=== PATIENT | male | born 1955 | race Caucasian/White ===

== ENCOUNTER 2016-11-29 05:36 | Inpatient (IN) ==
[2016-11-29 06:02] LABS: Basophils % 0.5 % (0.0-0.8); Eosinophils # 0.2 10*3/uL (0.0-0.87); Eosinophils % 2.3 % (0.00-10.9); Hematocrit 41.6 VOL% (42.0-52.0); Hemoglobin 14.7 GM/DL (14.0-18.0); Immature Granulocytes % 0.3 %; Immature Granulocytes Absolute 0.02 #; Lymphocytes % 30.7 % (21.2-54.2); Mean Corpuscular HGB Conc 35.3 GM/DL (32-36); Mean Corpuscular Hemoglobin 33 PG (27-34); Mean Corpuscular Volume 92.4 FL (87-102); Mean Platelet Volume 10.2 FL (9.6-12.0); Monocytes # 0.7 10*3/uL (0.11-0.8); Monocytes % 11.3 % (1.7-12.7); Neutrophils # 3.6 10*3/uL (1.4-7.4); Neutrophils % 54.9 % (38.7-73.9); Platelet Count 156 T/CUMM (130-400); Red Cell Distribution Width 13.2 % (9.3-17.3); White Blood Count 6.6 T/CUMM (4-12)
[2016-11-29] MEDS ORDERED: ASPIRIN 325 MG TABLET PO STA (06:05)
[2016-11-29] MEDS ORDERED: NITROGLYCERIN 2% OINT 1 INCH/GM PACK TOP STA (06:05)
[2016-11-29] MEDS ORDERED: ONDANSETRON 4 MG/2 ML VIAL IV STA (06:05)
[2016-11-29] MEDS ORDERED: ALUM/MAG/SIMETH/LIDO VISC 1:1 30 ML BOTTLE PO STA (06:05)
[2016-11-29] MEDS ORDERED: MORPHINE 2 MG/1 ML SYRINGE IV STA (06:05)
[2016-11-29] MEDS ORDERED: NITROGLYCERIN SL 0.4 MG TABLET SL PRN (06:05)
[2016-11-29] MEDS ORDERED: ENOXAPARIN 100 MG/ML SYRINGE SUBCUT STA (06:05)
[2016-11-29] MEDS ORDERED: ENOXAPARIN 100 MG/ML SYRINGE SUBCUT ONE (06:07)
[2016-11-29] MEDS ORDERED: ONDANSETRON 4 MG/2 ML VIAL ONE (06:08)
[2016-11-29] MEDS ORDERED: MORPHINE 2 MG/1 ML SYRINGE ONE (06:08)
[2016-11-29] MEDS ORDERED: NITROGLYCERIN 2% OINT 1 INCH/GM PACK TOP ONE (06:08)
[2016-11-29 06:12] LABS: PT Patient Result 10.8 SECS; Partial Thromboplastin Time 28.6 SECS (0-40)
--- NOTE | 2016-11-29 06:16 | Emergency Department Note ---
Noe Foster Brooke, am scribing for, and in the presence of, Az Hutson MD 06:08 . Caryl Foster James D, MD, personally performed the services described in this documentation, ascribed by Kayla Liu in my presence, and it is both accurate and complete 614 . Arrival - Arrival Chief Complaint: Chest Pain Stated Complaint: chest pain ED Nursing Triage Note: pt to triage c.o chest pain radiating to back, left arm tingling. pt states he is also sob, denies nausea at this time. chest pain started last night at 2200, went away, then pt awoken from sleep this am with cp. Mode of Arrival: Ambulatory Limitations: No Limitations Source: Patient, RN Notes Reviewed Time Seen by Provider: 11/29/16 06:01 - History of Present Illness HPI Narrative: Patient is a 61 year old male who presents to the ED with c/o chest pain that started about a week ago. Patient says the pain is intermittent and brought on by exertion. He also complains of shortness of breath and diaphoresis along with the chest pain. He denies any nausea, blood in stool, or melena. He says he is currently hurting and this episode started around 0500 this morning. Patient does not have a history of heart problems. He does not take ASA daily but says he did take one this morning. Patient has PMHx of migraines, bronchitis , pneumonia, rheumatological problems, kidney stones, GI problems, GERD, and skin cancer. Patient is not a smoker. His Primary Care Provider is Dr. Brandt. Onset (ago): week(s) (1) Allergies/Adverse Reactions: Allergies Allergy/AdvReac Type Severity Reaction Status Date / Time hydrocodone Allergy Severe Vomiting Verified 11/29/16 05:44 codeine AdvReac Severe Vomiting Verified 11/29/16 05:44 Zolpidem [From Ambien] AdvReac Severe Hallucinati Verified 11/29/16 05:44 ng Home Medications: Home Medications Medication Instructions Recorded Confirmed Type Cetirizine HCl [Zyrtec] 10 mg PO DAILY PRN 01/07/15 03/28/16 History Esomeprazole Magnesium [Nexium] 40 mg PO DAILY 01/07/15 03/28/16 History Meloxicam [Mobic] 7.5 mg PO BID 01/07/15 03/28/16 History Methocarbamol Tab [Robaxin Tab] 750 mg PO PRN PRN 01/07/15 03/25/16 History Metoprolol Succinate Xl [Toprol Xl] 50 mg PO DAILY 01/07/15 03/28/16 History Potassium Citrate [Urocit K] 20 meq PO BID 01/07/15 03/28/16 History Temazepam [Restoril] 30 mg PO BEDTIME PRN 01/07/15 03/28/16 History Topiramate [Topamax] 50 mg PO BID 01/07/15 03/28/16 History traZODone [Desyrel] 50 mg PO BEDTIME 03/28/16 03/28/16 History Review of System - Review of System 12 point system: reviewed and no additional remarkable complaints except as stated - Review of System Constitutional: Present: diaphoresis. Absent: fever Respiratory: Present: other (shortness of breath). Absent: respiratory distress Cardiovascular: Present: chest pain Gastrointestinal: Absent: nausea Skin: Absent: rash Medical,Surgical,& Family Hx - Medical History Neurology: History of: Migraine No history of: Seizures HEENT: History of: Eye Problem (GLASSES), Dental Problems (BRIDGE) Rheumatology: History of;: Rheumatological Problems Respiratory: History of: Bronchitis, Pneumonia, Respiratory Problems (SOB, COUGHING) Genitourinary: History of: Kidney Stones Gastrointestinal: History of: GERD, GI Problems Other: History of: Anesthesia Reactions (PT WAS HARD TO WAKE DURING LAST SURGERY WAS IN ICU DUE TO ANESTHESIA.), Cancer (SKIN CANCER), Miscellaneous Medical Problems (PATIENT STATES STOPS BREATHING IF LIES ON HIS BACK. NO CPAP USE.) - Surgical History Cardiac Surgeries: Sugical HX of: Cardiac Catheterization Thoracic Surgeries: Surgical HX of;: Lithotripsy (X2; 03/28/[address] Farmer) Abdominal Surgeries: Surgical HX of: Abdominal Surgery (COLECTOMY JUL 2014. DR KRISTY SAMPSON), Colonoscopy, EGD Orthopedic Surgeries: Surgical HX of;: Orthopedic Surgery (ADDISON SHOULDER, RT KNEE SURGERY), Total Knee Replacement - Social History Smoking Status: Never smoker Frequency of Alcohol Use: None Type of Drug Use: None Exam Vital Signs: Vital Signs Temperature 98.4 F 11/29/16 05:47 Pulse Rate 68 11/29/16 05:47 Respiratory Rate 18 11/29/16 05:59 Blood Pressure 139/86 11/29/16 05:47 O2 Sat by Pulse Oximetry 96 11/29/16 05:38 GENERAL: This is a well-nourished well-developed white male in no apparent distress. VITAL SIGNS: Reviewed HEENT: Head is atraumatic and normocephalic. Pupils are equal round react to light. Extraocular movements are intact. Oropharynx is benign with moist mucous membranes. NECK: Neck is soft and supple without tenderness. There are no masses. There is no lymphadenopathy. LUNGS: Lungs are clear to auscultation. Chest rises symmetrically. There is no chest wall tenderness. CV: Heart is regular rate and rhythm without murmurs rubs or gallops. ABDOMEN: Abdomen is soft, nontender to palpation. There are no abdominal abnormal masses palpated. There is no organomegaly. Bowel sounds are present and active. SKIN: Skin is warm and dry. No rash. EXTREMITIES: Patient has full range of motion without tenderness. There is no pedal edema. NEUROLOGIC: Awake alert and oriented 4. Cranial nerves II through XII are grossly intact. Motor is 5 over 5 in all extremities bilaterally. Deep tendon reflexes are 2+ and bilaterally equal. Course - Consultations Consultation #1: Discussed with hospitalist. Patient will be admitted to their service. Time: 07:13 Results - Labs CBC & BMP: 11/29/16 05:50 11/29/16 05:50 Lab Results: I have reviewed the patients labs Labs: Laboratory Tests 11/29/16 05:50 INR 1.0 - EKG EKG results: interpreted by ERMD - Impressions EKG: Normal sinus rhythm with a rate of 63, short DC, nonspecific ST-T wave changes, normal axis. - Diagnostic Findings Procedure: Chest x-ray: image reviewed by me (No infiltrates, no pleural effusions.) Disposition Clinical Impression: Chest pain Case discussed with: patient Disposition: Still a Patient Condition: Stable
[2016-11-29] MEDS ORDERED: ALUM/MAG/SIMETH/LIDO VISC 1:1 30 ML BOTTLE PO ONE (06:18)
[2016-11-29] MEDS ORDERED: ASPIRIN 325 MG TABLET ONE (06:18)
[2016-11-29 06:34] LABS: Alanine Aminotransferase 23 U/L (16-61); Albumin 3.8 G/DL (3.4-5.0); Alkaline Phosphatase 78 U/L (45-117); Aspartate Amino Transferase 22 U/L (0-37); Blood Urea Nitrogen 17 MG/DL (7-18); Calcium 8.3 MG/DL (8.5-10.1); Glucose 102 MG/DL (74-106); Osmolality,Calculated 284.1 MOS/KG (273-304); Potassium 3.6 MMOL/L (3.5-5.1); Sodium 142 MMOL/L (136-145); Troponin I Only < 0.015 NG/ML (0.00-0.045)
[2016-11-29 06:38] LABS: Apearance,Urine CLEAR (Clear); Bilirubin,Urine Negative (Negative); Blood, Urine Negative (Negative); Glucose,Urine (UA) Negative (Negative); Ketones,Urine Negative (Negative); Mucus,Urine Occasional /LPF (Occasional); Nitrite,Urine Negative (Negative); Protein,Urine Negative; RBC,Urine 1 /HPF (0-4); Urine Color Yellow (Yellow); Urine Specific Gravity 1.013 (1.001-1.035); Urine Urobilinogen < 2.0 EU/DL (0.2-1.0); WBC,Urine 1 /HPF (0-6)
--- NOTE | 2016-11-29 06:50 | XRay Report ---
Exam: XR chest 1V portable Date: 11/29/2016 5:52 AM Indication: Chest pain Comparison: 06/28/2013 Technical: AP portable Findings: Mild cardiac prominence is present. There is prominence of the left hilar region similar to previous exam. No obvious infiltrates or effusions. External cardiac leads are present. Mediastinum is intact Impression: 1. Mild prominence of the left hilar region unchanged from previous exam. 2. Borderline cardiac enlargement PROCEDURE INTERPRETED AT [facility] DEPARTMENT OF RADIOLOGY Final Report Signed by: Dr. Magno Dave
--- NOTE | 2016-11-29 07:30 | EKG Report ---
Stationary ECG Study 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
[2016-11-29 08:03] LABS: Risk Ratio 5.9; VLDL CHOLESTEROL 57.6 MG/DL
--- NOTE | 2016-11-29 08:11 | Hospitalist History & Physical ---
<Prema Wilkesda - Last Filed: 11/29/16 08:40> Assessment and Plan (1) Dyslipidemia Status: Acute Assessment and plan: Triglycerides at admission 288; spoke in great detail dietary modifications. Will start low dose lipid lowering agent. Current Visit: Yes (2) Chest pain Status: Acute Assessment and plan: Will conduct full cardiac work up. Obtain serial cardiac enzymes, echocardiogram , and carotid dopplers; if positive, will consult cardiology. Current Visit: Yes History of Present Illness Chief complaint: chest pain x 1 week History of present illness: This is a very pleasant 61 year old male that presented to the ED at [facility] with a chief complaint of chest pain x1 week. The patient has a rather extensive medical history significant for hypertension, bronchitis, migraine, renal stones, diverticulitis, and GERD. He has a surgical history of total knee replacement and partial colectomy. The patient reports an onset of above symptoms one week ago. He reports intermittent shortness of breath during the episodes of chest pain; however denies nausea, vomiting, or syncope. He describes the pain as "pressure-like" with radiation to his back. He reported episodes of what he describes as "tingling" to his left arm. 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 He denies current tobacco and alcohol use; however reports a remote history of use over 32 years ago. At the time of presentation, he was assessed, given Nitroglycerin and Morphine, and his symptoms improved. He continues to verbalizes feelings of "slight pressure" at the time of assessment. Labs were obtained which were essentially unremarkable. Cardiac enzymes noted <0.015. Electrocardiogram was obtained which revealed normal sinus rhythm with a rate of 63, the IL interval was shortened with nonspecific ST-T wave changes. Chest radiography suggested mild cardiomegaly with absence of infiltrates and pleural effusions. Home Medications Medication Instructions Recorded Confirmed Type Esomeprazole Magnesium [Nexium] 40 mg PO DAILY 01/07/15 11/29/16 History Meloxicam [Mobic] 7.5 mg PO DAILY 01/07/15 11/29/16 History Metoprolol Succinate Xl [Toprol Xl] 50 mg PO DAILY 01/07/15 11/29/16 History Potassium Citrate [Urocit K] 20 meq PO TID 01/07/15 11/29/16 History Temazepam [Restoril] 30 mg PO BEDTIME PRN 01/07/15 11/29/16 History Topiramate [Topamax] 50 mg PO BID 01/07/15 11/29/16 History traZODone [Desyrel] 50 mg PO BEDTIME 03/28/16 11/29/16 History Meperidine Tab [Demerol Tab] 50 mg PO Q4-6H PRN 11/29/16 11/29/16 History Rizatriptan Benzoate [Rizatriptan] 10 mg PO DAILY PRN 11/29/16 11/29/16 History Allergies Allergy/AdvReac Type Severity Reaction Status Date / Time hydrocodone Allergy Severe Vomiting Verified 11/29/16 05:44 codeine AdvReac Severe Vomiting Verified 11/29/16 05:44 Zolpidem [From Ambien] AdvReac Severe Hallucinati Verified 11/29/16 05:44 ng Medical,Surgical,& Family Hx - Medical History Neurology: History of: Migraine No history of: Seizures HEENT: History of: Eye Problem (GLASSES), Dental Problems (BRIDGE) Rheumatology: History of;: Rheumatological Problems Respiratory: History of: Bronchitis, Pneumonia, Respiratory Problems (SOB, COUGHING) Genitourinary: History of: Kidney Stones Gastrointestinal: History of: GERD, GI Problems Other: History of: Anesthesia Reactions (PT WAS HARD TO WAKE DURING LAST SURGERY WAS IN ICU DUE TO ANESTHESIA.), Cancer (SKIN CANCER), Miscellaneous Medical Problems (PATIENT STATES STOPS BREATHING IF LIES ON HIS BACK. NO CPAP USE.) - Surgical History Cardiac Surgeries: Sugical HX of: Cardiac Catheterization Thoracic Surgeries: Surgical HX of;: Lithotripsy (X2; 03/28/[address] Farmer) Abdominal Surgeries: Surgical HX of: Abdominal Surgery (COLECTOMY JUL 2014. DR KRISTY SAMPSON), Colonoscopy, EGD Orthopedic Surgeries: Surgical HX of;: Orthopedic Surgery (ADDISON SHOULDER, RT KNEE SURGERY), Total Knee Replacement - Social History Smoking Status: Former smoker Have you smoked in the last 12 months: No Time spent discussing smoking cessation with patient: more than 10 minutes Frequency of Alcohol Use: None Type of Drug Use: None Marital Status: Single Lives With:: Alone Functional capacity: independent ambulation 12 point system: reviewed and no additional remarkable complaints except as stated Exam - Constitutional Vitals: Period Temp Pulse Resp BP Sys/Harmon Pulse Ox Last 24 Hr 98.0 F 52 18 103/67 98 General appearance: normal weight, no acute distress - Head Head exam: Present: normal inspection, normocephalic, atraumatic - Eye Eye exam: Present: EOMI. Absent: conjunctival injection Pupils: Present: STACY, normal accommodation - ENT ENT exam: Present: normal exam, normal external ear exam, normal oropharynx - Neck Neck exam: Present: normal inspection. Absent: lymphadenopathy, meningismus, tenderness, thyromegaly - Respiratory Respiratory exam: Present: clear to auscultation bilaterally. Absent: rales, rhonchi, stridor, wheezes - Cardiovascular Cardiovascular exam: Present: bradycardia. Absent: carotid bruit, diastolic murmur, gallop, JVD, rubs, tachycardia - GI/Abdominal GI/Abdominal exam: Present: normal bowel sounds, soft - Extremities Exam Extremities exam: Present: normal inspection, normal capillary refill, full ROM. Absent: edema - Back Exam Back exam: Present: normal inspection, other (back tenderness) - Neurological Exam Neurological exam: Present: alert, oriented X3, CN II-XII intact - Psychiatric Psychiatric exam: Present: normal affect, normal mood - Skin Skin exam: Present: normal color, warm, dry Results - Labs CBC & BMP: 11/29/16 05:50 11/29/16 05:50 Lab Results: I have reviewed the past 24 hour labs <Alexi Das - Last Filed: 11/29/16 17:02> History of Present Illness History of present illness: Patient seen and examined with TRINA Wilkes, agree with history, assessment and plan as documented. 61 y/o WM being admitted for chest pain. History of smoking , quit 32 years ago. No family history of MS, father does have history of angina. Troponin negative thus far. Patient might benefit of stress testing. Exam - Constitutional Vitals: Period Temp Pulse Resp BP Sys/Harmon Pulse Ox Last 24 Hr 97.5 F-98.8 F 52-66 18-20 96-107/63-73 94-98 Results - Labs CBC & BMP: 11/29/16 05:50 11/29/16 05:50
[2016-11-29 08:32] LABS: Magnesium 2.6 MG/DL (1.8-2.4); Phosphorous 7.9 MG/DL (2.5-4.9)
--- NOTE | 2016-11-29 09:22 | EKG Report ---
Stationary ECG Study 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
--- NOTE | 2016-11-29 12:11 | EKG Report ---
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
[2016-11-29] MEDS: traMADol 50 MG TABLET PO PRN ×2 (13:19→16:59)
[2016-11-29] MEDS ORDERED: TEMAZEPAM 15 MG CAPSULE PO PRN (17:03)
[2016-11-29] MEDS ORDERED: RIZATRIPTAN ODT 5 MG TABLET PO PRN (17:03)
--- NOTE | 2016-11-29 17:29 | ECHO Report ---
[facility] Exam Date: 11/29/2016 08:29 Referring Physician: Technologist: Rupal Adams Age: 61 Ht (in): 70 Wt (lb): 230 Gender: M Exam Location: [facility] Echo Indications: chest pain BP: / HR: 55 Rhythm: Sinus Technical Quality: Fair IMPRESSIONS Normal left ventricular size, systolic function and wall thickness, with no regional wall motion abnormalities. EF 55-60 %. Grade I/IV diastolic dysfunction (abnormal relaxation filling pattern), normal to mildly elevated filling pressures. Normal right ventricular size and systolic function. Normal right atrial size. Mildly increased left atrial diameter. Mildly thickened mitral valve. Trace mitral valve regurgitation. Aortic valve sclerosis. No aortic valve regurgitation. Mild tricuspid valve regurgitation. [id number]. Morphologically normal pulmonic valve. No pericardial effusion. Normal size aortic root and proximal ascending aorta. MEASUREMENTS (Male / Female) Normal Values 2D ECHO LV Diastolic Diameter PLAX 4.2 cm 4.2 - 5.9 / 3.9 - 5.3 cm LV Systolic Diameter PLAX 2.4 cm LV Fractional Shortening PLAX 42.7 % IVS Diastolic Thickness 1.7 cm 0.6 - 1.0 / 0.6 - 0.9 cm LVPW Diastolic Thickness 1.4 cm 0.6 - 1.0 / 0.6 - 0.9 cm RV Internal Dim ED PLAX 3.4 cm Aortic Root Diameter 2.5 cm LA Systolic Diameter LX 4.3 cm 3.0 - 4.0 / 2.7 - 3.8 cm DOPPLER TR Peak Velocity 219.0 cm/s TR Peak Gradient 19.2 mmHg FINDINGS Left Ventricle Normal left ventricular size, systolic function and wall thickness, with no regional wall motion abnormalities. EF 55-60 %. Grade I/IV diastolic dysfunction (abnormal relaxation filling pattern), normal to mildly elevated filling pressures. Right Ventricle Normal right ventricular size and systolic function. Right Atrium Normal right atrial size. Left Atrium Mildly increased left atrial diameter. Mitral Valve Mildly thickened mitral valve. Trace mitral valve regurgitation. Aortic Valve Aortic valve sclerosis. No aortic valve regurgitation. Tricuspid Valve Morphologically normal tricuspid valve. Mild tricuspid valve regurgitation. [id number]. Pulmonic Valve Morphologically normal pulmonic valve. Pericardium No pericardial effusion. Aorta Normal size aortic root and proximal ascending aorta. Hany Juan J (Electronically Signed) Final Date: 29 Nov 2016 17:28
[2016-11-29] MEDS ORDERED: traZODone 50 MG TABLET PO SCH (21:00)
[2016-11-29] MEDS: PANTOPRAZOLE 40 MG TABLET PO SCH (21:22)
[2016-11-29] MEDS: TOPIRAMATE 100 MG TABLET PO SCH (21:22)
[2016-11-30 05:23] LABS: Basophils % 0.2 % (0.0-0.8); Eosinophils # 0.1 10*3/uL (0.0-0.87); Eosinophils % 2.1 % (0.00-10.9); Hematocrit 39.1 VOL% (42.0-52.0); Hemoglobin 13.9 GM/DL (14.0-18.0); Immature Granulocytes % 0.6 %; Immature Granulocytes Absolute 0.03 #; Lymphocytes # 2.1 10*3/uL (1.4-4.0); Lymphocytes % 39.7 % (21.2-54.2); Mean Corpuscular HGB Conc 35.5 GM/DL (32-36); Mean Corpuscular Hemoglobin 33 PG (27-34); Mean Corpuscular Volume 91.4 FL (87-102); Mean Platelet Volume 10.8 FL (9.6-12.0); Monocytes # 0.5 10*3/uL (0.11-0.8); Monocytes % 10.1 % (1.7-12.7); Neutrophils # 2.5 10*3/uL (1.4-7.4); Neutrophils % 47.3 % (38.7-73.9); Platelet Count 137 T/CUMM (130-400); Red Blood Count 4.28 MC/CUMM (3.8-5.5); White Blood Count 5.2 T/CUMM (4-12)
[2016-11-30 05:57] LABS: Albumin 3.4 G/DL (3.4-5.0); Bilirubin,Total 0.8 MG/DL (0.2-1.0); Calcium 7.9 MG/DL (8.5-10.1); Magnesium 1.8 MG/DL (1.8-2.4); Osmolality,Calculated 281.3 MOS/KG (273-304); Phosphorous 2.8 MG/DL (2.5-4.9); Potassium 3.7 MMOL/L (3.5-5.1); Total Protein 6.3 G/DL (6.4-8.3)
--- NOTE | 2016-11-30 08:59 | Hospitalist Progress Note ---
<Thom Wilkes - Last Filed: 11/30/16 09:00> Assessment and Plan (1) Dyslipidemia Status: Acute Assessment and plan: Triglycerides at admission 288; spoke in great detail dietary modifications. Will start low dose lipid lowering agent. 11/30-Will start low-dose Zocor today. Current Visit: Yes (2) Chest pain Status: Acute Assessment and plan: Will conduct full cardiac work up. Obtain serial cardiac enzymes, echocardiogram , and carotid dopplers; if positive, will consult cardiology. 11/30-Reports episodes of chest pain on last night; cardiology consult requested. Current Visit: Yes Hospitalist: Subjective Interval history: Patient seen and examined. Reports intermittent chest pain on last night. Awaiting Cardiology consult this AM. Exam - Constitutional Vitals: Period Temp Pulse Resp BP Sys/Harmon Pulse Ox Last 24 Hr 97.6 F-98.9 F 52-66 14-20 96-142/63-85 94-98 General appearance: normal weight, no acute distress - Head Head exam: Present: normal inspection, normocephalic, atraumatic - Eye Eye exam: Present: EOMI, conjunctival injection. Absent: nystagmus Pupils: Present: STACY, normal accommodation. Absent: constricted - ENT ENT exam: Present: normal exam, normal external ear exam, normal oropharynx - Neck Neck exam: Present: normal inspection. Absent: lymphadenopathy, meningismus, tenderness, thyromegaly - Respiratory Respiratory exam: Present: clear to auscultation bilaterally. Absent: rales, rhonchi, stridor, wheezes - Cardiovascular Cardiovascular exam: Present: regular rate and rhythm. Absent: carotid bruit, diastolic murmur, gallop, JVD, rubs, systolic murmur - GI/Abdominal GI/Abdominal exam: Present: normal bowel sounds, soft. Absent: distended, firm , guarding, tenderness, rebound - Extremities Exam Extremities exam: Present: normal inspection, normal capillary refill, full ROM. Absent: edema - Back Exam Back exam: Present: normal inspection - Neurological Exam Neurological exam: Present: alert, oriented X3, CN II-XII intact - Psychiatric Psychiatric exam: Present: normal affect, normal mood - Skin Skin exam: Present: normal color, warm, dry Results - Labs CBC & BMP: 11/30/16 04:53 11/30/16 04:53 Lab Results: I have reviewed the past 24 hour labs <Alexi Das - Last Filed: 11/30/16 15:36> Hospitalist: Subjective Interval history: Patient seen and examined independently of TRINA Wilkes, agree with assessment and plan as documented. Cardiology consulted. They have discharged patient with plans for stress testing outpatient in the next 24-48 hours. Thanks for the assistance. Exam - Constitutional Vitals: Period Temp Pulse Resp BP Sys/Harmon Pulse Ox Last 24 Hr 97.6 F-98.9 F 52-66 14-18 96-142/63-85 96-98 Results - Labs CBC & BMP: 11/30/16 04:53 11/30/16 04:53
[2016-11-30] MEDS: TOPIRAMATE 100 MG TABLET PO SCH (09:40)
[2016-11-30] MEDS: PANTOPRAZOLE 40 MG TABLET PO SCH (09:40)
--- NOTE | 2016-11-30 15:19 | Cardiology Consult Note ---
Seven Foster April RN, am scribing for, and in the presence of, Fan Rod MD 15:18. 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 Quintana once in the hospital in the past Mr. Newton is a 61 year old male with a history of migraines, arthritis, respiratory problems, kidney stones, and GERD. Dr. Quintana saw him in 2012 for chest pain and Dr. Isbell performed heart catheterization on him. He was found to have essentially normal coronary arteries. There may have been minimal luminal irregularities in the LAD, but no flow obstructing lesions. He has had no further cardiac problems and has not followed up with cardiology. Other surgical history includes lithotripsy, colectomy, bilateral shoulder surgery, and right knee scope. He has a strong family history for heart disease including father who had an NC around age 60. He is not a current smoker, reports he quit smoking about 30 years ago. Mr. Newton reports he was in his usual state of health 2 weeks ago when he began having chest pressure in the center and slightly to the left. He reports that it comes and goes and is associated with dyspnea on exertion. It does not radiate. He reports activity does trigger it and resting alleviates the pain. He reports a progressively gotten worse being a 6-7 on a scale of 1-10. He presented to the emergency department yesterday for further evaluation. In the emergency department he was given a 325 mg aspirin, GI cocktail, subcu Lovenox, morphine 2 mg IV 1 dose, Nitro-Bid ointment, and Zofran 4 mg IV 1 days. He reports the pain was relieved after this. Currently he is seen resting in bed in no acute distress. He reports the pain has returned off and on since it is related to the ER. Currently it is a tightness that he rates as a 2 on a scale of 1-10. It is reproducible. He denies having any shortness of breath presently while lying in bed, palpitations , or dizziness. Vital signs been stable, quality assurance monitor body currently shows sinus bradycardia with heart rates in the 50s. Troponin has been negative 3. Echo done yesterday with ejection fraction of 55-60%. This patient had a negative catheterization 2012 and presents with chest pain which is reproducible with palpation lower sternum and epigastrium. His EKG is unrevealing and I think it is reasonable to proceed with noninvasive evaluation as an outpatient. He can be discharged to follow-up with us as an outpatient. Need to discharge on sublingual nitroglycerin as needed and schedule stress testing for tomorrow if possible at our office. CC: Alexi Das MD - Home Medications and Allergies Home Medications: Home Medications Medication Instructions Recorded Confirmed Type Esomeprazole Magnesium [Nexium] 40 mg PO DAILY 01/07/15 11/29/16 History Meloxicam [Mobic] 7.5 mg PO DAILY 01/07/15 11/29/16 History Metoprolol Succinate Xl [Toprol Xl] 50 mg PO DAILY 01/07/15 11/29/16 History Potassium Citrate [Urocit K] 20 meq PO TID 01/07/15 11/29/16 History Temazepam [Restoril] 30 mg PO BEDTIME PRN 01/07/15 11/29/16 History Topiramate [Topamax] 50 mg PO BID 01/07/15 11/29/16 History traZODone [Desyrel] 50 mg PO BEDTIME 03/28/16 11/29/16 History Meperidine Tab [Demerol Tab] 50 mg PO Q4-6H PRN 11/29/16 11/29/16 History Rizatriptan Benzoate [Rizatriptan] 10 mg PO DAILY PRN 11/29/16 11/29/16 History Allergies/Adverse Reactions: Allergies Allergy/AdvReac Type Severity Reaction Status Date / Time hydrocodone Allergy Severe Vomiting Verified 11/29/16 05:44 codeine AdvReac Severe Vomiting Verified 11/29/16 05:44 Zolpidem [From Ambien] AdvReac Severe Hallucinati Verified 11/29/16 05:44 ng - Constitutional Constitutional: Present: as per HPI - EENT Eyes: Present: blurry vision, requires corrective lense Ears: Absent: decreased hearing, ear pain, tinnitus Nose, mouth and throat: Present: headache(s). Absent: dysphagia, epistaxis, neck pain - Cardiovascular Cardiovascular: Present: chest pain at rest, chest pain with activity, dyspnea on exertion. Absent: diaphoresis, dyspnea, edema, radiating jaw, neck or arm pain, lightheadedness, orthopnea, palpitations - Respiratory Respiratory: Present: cough, dyspnea on exertion. Absent: dyspnea, hemoptysis, wheezing - Gastrointestinal Gastrointestinal: Absent: abdominal pain, constipation, diarrhea, hematemesis, hematochezia, melena, nausea, vomiting - Genitourinary Genitourinary: Absent: dysuria, hematuria - Musculoskeletal Musculoskeletal: Present: limited range of motion. Absent: back pain, muscle weakness - Neurological Neurological: Present: disequilibrium, headache(s). Absent: abnormal speech, dizziness, frequent falls, syncope - Psychiatric Psychiatric: Absent: anxiety, depression - Endocrine Endocrine: Absent: fatigue - Hematologic/Lymphatic Hematologic/Lymphatic: Present: easy bruising. Absent: easy bleeding Medical,Surgical,& Family Hx - Medical History Neurology: History of: Migraine HEENT: History of: Eye Problem (GLASSES), Dental Problems (BRIDGE) Rheumatology: History of;: Rheumatoid Arthritis Respiratory: History of: Bronchitis, Pneumonia Genitourinary: History of: Kidney Stones Gastrointestinal: History of: GERD Other: History of: Anesthesia Reactions (PT WAS HARD TO WAKE DURING LAST SURGERY WAS IN ICU DUE TO ANESTHESIA.), Cancer (SKIN CANCER) - Surgical History Cardiac Surgeries: Sugical HX of: Cardiac Catheterization (Negative in 2012) Thoracic Surgeries: Surgical HX of;: Lithotripsy (X2; 03/28/[address] Farmer) Abdominal Surgeries: Surgical HX of: Abdominal Surgery (COLECTOMY JUL 2014. DR WAGNER III), Colonoscopy, EGD Orthopedic Surgeries: Surgical HX of;: Orthopedic Surgery (ADDISON SHOULDER, RT KNEE scope) - Family History Family History: Reports;: Family Heart Disease - Social History Smoking Status: Former smoker (Quit 30 years ago) Have you smoked in the last 12 months: No Frequency of Alcohol Use: None Type of Drug Use: None Marital Status: Single Lives With:: Significant Other Functional capacity: independent ambulation Physical Examination Vital Signs Temp Pulse Resp BP Pulse Ox 98.4 F 68 16 139/86 96 11/29/16 05:38 11/29/16 05:38 11/29/16 05:38 05/16/17 05:38 11/29/16 05:38 General: Present: Appears Well, No Apparent Distress HEENT: Present: PERRL, Mucus Membranes Moist Neck: Present: Supple Neck, Midline Trachea, No Bruit Cardiac: Present: Reg Rate and Rhythm, No Murmur, Bradycardia Lungs: Present: Normal Breath Sounds, No Wheeze, Rales, Rhonchi Neuro: Absent: Resting Tremor, Essential Tremor Abdomen: Present: Soft, Active Bowel Sounds, Non-Tender. Absent: Distended Skin: Present: Clear Extremities: Present: No Edema, Normal Upper Extr. Pulses, Normal Lower Extr. Pulses Result/EKG - Labs CBC & BMP: 11/30/16 04:53 11/30/16 04:53 Lab Results: I have reviewed the past 24 hour labs Labs: Laboratory Results - last 24 hr 11/29/16 11/30/16 11/30/16 11:44 04:53 04:53 WBC 5.2 RBC 4.28 Hgb 13.9 L Hct 39.1 L MCV 91.4 MCH 33 MCHC 35.5 RDW 13.0 Plt Count 137 MPV 10.8 Neut % (Auto) 47.3 Lymph % (Auto) 39.7 Guthrie % (Auto) 10.1 Eos % (Auto) 2.1 Baso % (Auto) 0.2 Neut # (Auto) 2.5 Lymph # (Auto) 2.1 Guthrie # (Auto) 0.5 Eos # (Auto) 0.1 Baso # (Auto) 0.0 Immature Gran % 0.6 Nucleated RBC % 0.0 Immature Gran # 0.03 Nucleated RBCs # 0.00 Sodium 141 Potassium 3.7 Chloride 107 Carbon Dioxide 27 Anion Gap 10.7 BUN 15 Creatinine 1.30 GFR Calculation 74 BUN/Creatinine Ratio 11.00 Glucose 100 Calculated Osmolality 281.3 Calcium 7.9 L Phosphorus 2.8 Magnesium 1.8 Total Bilirubin 0.80 AST 20 ALT 23 Alkaline Phosphatase 74 Troponin I < 0.015 Total Protein 6.3 L Albumin 3.4 Globulin 2.9 Albumin/Globulin Ratio 1.1 11/30/16 07:54 WBC RBC Hgb Hct MCV MCH MCHC RDW Plt Count MPV Neut % (Auto) Lymph % (Auto) Guthrie % (Auto) Eos % (Auto) Baso % (Auto) Neut # (Auto) Lymph # (Auto) Guthrie # (Auto) Eos # (Auto) Baso # (Auto) Immature Gran % Nucleated RBC % Immature Gran # Nucleated RBCs # Sodium Potassium Chloride Carbon Dioxide Anion Gap BUN Creatinine GFR Calculation BUN/Creatinine Ratio Glucose Calculated Osmolality Calcium Phosphorus Magnesium Total Bilirubin AST ALT Alkaline Phosphatase Troponin I < 0.015 Total Protein Albumin Globulin Albumin/Globulin Ratio - EKG EKG results: interpreted by me EKG shows: bradycardia, sinus rhythm IMarcel Wesley, MD, personally performed the services described in this documentation, ascribed by Adelina Amezcua RN in my presence, and it is both accurate and complete [id number] .
--- NOTE | 2016-11-30 15:24 | Discharge Summary ---
Hospital Course - Hospital Course Hospital Course: 61-year-old male with history of nonocclusive coronary disease of the LAD at cath in 2012 presents with chest discomfort which is atypical for angina. He has no risk factors for premature heart disease. He presents with chest discomfort worsened with palpation to the anterior chest and 3 sets of negative isoenzymes. EKG is unrevealing. I think that he can be discharged to follow- up promptly with a stress test in our office in the next 2448 hrs. He will be discharged home as needed sublingual nitroglycerin and we will see him back in the office in 2 weeks for follow-up. Diagnosis - Discharge Diagnosis (1) Chest pain Status: Acute (2) Dyslipidemia Status: Chronic Discharge Plan - Discharge Data Disposition: Disch To Home/Self Care Condition at Discharge: Stable Discharge Diet: heart healthy - Discharge Medications New Nitroglycerin Sl Tab [Nitrostat] 0.4 mg SL Q5M PRN #60 tablet PRN Reason: Chest Pain Simvastatin [Zocor] 10 mg PO BEDTIME #30 tablet Continue Temazepam [Restoril] 30 mg PO BEDTIME PRN PRN Reason: Sleep Meloxicam [Mobic] 7.5 mg PO DAILY Potassium Citrate [Urocit K] 20 meq PO TID Topiramate [Topamax] 50 mg PO BID Metoprolol Succinate Xl [Toprol Xl] 50 mg PO DAILY Esomeprazole Magnesium [Nexium] 40 mg PO DAILY traZODone [Desyrel] 50 mg PO BEDTIME Rizatriptan Benzoate [Rizatriptan] 10 mg PO DAILY PRN PRN Reason: Migraine Headache Meperidine Tab [Demerol Tab] 50 mg PO Q4-6H PRN PRN Reason: Pain - Follow Up or Referral - Forms/Instructions Exam - Constitutional Vitals: Period Temp Pulse Resp BP Sys/Harmon Pulse Ox Last 24 Hr 97.6 F-98.9 F 52-66 14-18 96-142/63-85 96-98 Discharge Results Procedures and tests throughout hospitalization: Pending Orders 11/29/16 05:50 Thyroid Function [place], S Stat Labs on day of discharge: Labs from last 24 hours 11/30/16 11/30/16 11/30/16 07:54 04:53 04:53 WBC 5.2 RBC 4.28 Hgb 13.9 L Hct 39.1 L MCV 91.4 MCH 33 MCHC 35.5 RDW 13.0 Plt Count 137 MPV 10.8 Neut % (Auto) 47.3 Lymph % (Auto) 39.7 Toole % (Auto) 10.1 Eos % (Auto) 2.1 Baso % (Auto) 0.2 Neut # (Auto) 2.5 Lymph # (Auto) 2.1 Toole # (Auto) 0.5 Eos # (Auto) 0.1 Baso # (Auto) 0.0 Immature Gran % 0.6 Nucleated RBC % 0.0 Immature Gran # 0.03 Nucleated RBCs # 0.00 Sodium 141 Potassium 3.7 Chloride 107 Carbon Dioxide 27 Anion Gap 10.7 BUN 15 Creatinine 1.30 GFR Calculation 74 BUN/Creatinine Ratio 11.00 Glucose 100 Calculated Osmolality 281.3 Calcium 7.9 L Phosphorus 2.8 Magnesium 1.8 Total Bilirubin 0.80 AST 20 ALT 23 Alkaline Phosphatase 74 Troponin I < 0.015 Total Protein 6.3 L Albumin 3.4 Globulin 2.9 Albumin/Globulin Ratio 1.1 DS: Provider Date of admission: 11/29/16 07:19 Primary care physician: Magno Brandt, Attending physician on admission: Alexi Das MD Consults: 11/30/16 07:31 Consult to Physician [CONS] Routine Comment: chest pain, hx of smoking, Consulting Provider: Fan Rod Person Notified: Neetu Date Notified: 11/30/16 Time Notified: 07:38 Discharging clinician: Fan Rod MD
[2016-11-30 15:54] VITALS: BP 137/90
[2016-11-30] MEDS ORDERED: SIMVASTATIN 10 MG TABLET PO SCH (21:00)
== END 2016-11-30 16:46 | disposition home or self-care (01) | DRG 313 ==
LOC: N.ED 05:36 → N.EDINP 07:19 → N.TELES 09:00
PROVIDERS: ADMIT Internal Medicine; ATTEND Internal Medicine